=== PATIENT | male | born 1975 | race Hispanic/Latino ===

== ENCOUNTER 2024-12-22 14:24 | Emergency (ER) | payer SELFPAY ==
[2024-12-22] MEDS ORDERED: Sodium Chloride 0.9% 1,000 ML ONE (15:40)
[2024-12-22 15:49] LABS: Amphetamine Not Detected (NotDetected); Barbiturates Screen Not Detected (NotDetected); Benzodiazepine Screen Not Detected (NotDetected); Cocaine Metabolite Screen Not Detected (NotDetected); Methadone Not Detected (NotDetected); Methamphetamine Not Detected (NotDetected); Opiate Screen Not Detected (NotDetected); Oxycodone Screen Not Detected (NotDetected); Phencyclidine (PCP) Not Detected (NotDetected); THC/Cannabinoid Screen Not Detected (NotDetected); Tricyclic Screen Not Detected (NotDetected)
[2024-12-22 15:52] LABS: #Basophils 0.1 thou/uL (0.0-0.2); #Lymphocytes 1.5 thou/uL (1.20-3.40); #Monocytes 0.5 thou/uL (0.11-0.59); #Neutrophils 6.5 thou/uL (1.40-6.50); %Basophils 0.6 % (0.0-1.0); %Eosinophils 0.1 % (0.0-10.0); %Monocytes 6.1 % (0.0-10.0); %Neutrophils 76.2 % (42.0-75.0); Hematocrit 45.3 % (42.0-52.0); Mean Corpuscular HGB CONC 35.4 g/dL (32.0-36.0); Mean Corpuscular Hemoglobin 30.4 pg (27.0-31.0); Mean Corpuscular Volume 85.7 fl (78.0-98.0); Mean Platelet Volume 7.3 fL (7.4-10.4); Platelet Count 254 10x3/uL (130-400); RBC Distribution Width 12.1 % (11.5-14.5); Red Blood Cell (RBC) Count 5.28 mill/uL (4.70-6.10); White Blood Cell (WBC) Count 8.5 10x3/uL (4.8-10.8)
[2024-12-22 16:01] LABS: ALT (SGPT) 22 U/L (Less than 45); AST (SGOT) 35 U/L (11-34); Alkaline Phosphatase 99 U/L (40-110); Anion Gap 16 mmol/L (10-20); BUN (Urea Nitrogen) 13 mg/dL (8.9-20.6); Bilirubin, Total 0.3 mg/dL (0.3-1.2); Calc. Creatinine Clearance 0 mL/min (70-130); Calcium 9.4 mg/dL (7.8-10.44); Carbon Dioxide 21 mmol/L (22-29); Chloride 112 mmol/L (98-107); Estimated GFR 106; Glucose 109 mg/dL (70-105); Potassium 4.3 mmol/L (3.5-5.1); Sodium 145 mmol/L (136-145)
[2024-12-22 16:03] LABS: Acetaminophen Less than 10 mcg/mL (Less than 10); Alcohol 145.6 mg/dL (Less than 10); Salicylate Less than 8.0 mg/dL (Less than 8.0)
== END 2024-12-22 16:33 ==
LOC: NAV ERS 14:24
DX: S01.01XA Laceration without foreign body of scalp, initial encounter (principal); S80.812A Abrasion, left lower leg, initial encounter; S80.811A Abrasion, right lower leg, initial encounter; F10.129 Alcohol abuse with intoxication, unspecified; V57.5XXA Driver of pick-up truck or van injured in collision with fixed or stationary object in traffic accident, initial encounter; Y90.6 Blood alcohol level of 120-199 mg/100 ml
CPT/HCPCS: 70450; 72125; 80053; 80306; 80307; 85025; J7030